=== PATIENT | male | born 1965 | race Caucasian/White ===

== ENCOUNTER 2017-03-26 00:34 | Emergency (ER) | payer MEDICAID ==
[~2017-03-26] VITALS: Ht 175.3 cm; Wt 127.0 kg
[~2017-03-26 00:34] MED LIST: NEXIUM40 MG PO; NORCO 5-325 TA1 EACH PO; PROPRANOLOL 1010 MG PO; SYMBICORT160 MCG/4. INH; VENTOLIN HFA 1818 GM INH; VIAGRA100 MG PO; WELLBUTRIN SR150 MG PO
[2017-03-26] MEDS ORDERED: ASPIR 8181 MG PO (00:41)
[2017-03-26] MEDS ORDERED: TRAMADOL 50 MG50 MG PO (00:41)
[2017-03-26] MEDS ORDERED: LISINOPRIL-HCT1 EAC2 PO (00:41)
[2017-03-26] MEDS ORDERED: MOBIC15 MG PO (00:41)
[2017-03-26 01:30] LABS: INFLUENZA A ANTIGEN None Detected (None Detect); INFLUENZA B ANTIGEN None Detected (None Detect)
[2017-03-26] MEDS ORDERED: TUSSIONEX PENN115 ML PO (01:36)
[2017-03-26 02:05] VITALS: BP 134/88
== END 2017-03-26 02:05 | disposition home or self-care (01) ==
LOC: M.ERS 00:34
PROVIDERS: Emergency Medicine
DX: J40 Bronchitis, not specified as acute or chronic (principal); I10 Essential (primary) hypertension; F17.210 Nicotine dependence, cigarettes, uncomplicated

== ENCOUNTER 2018-09-19 00:14 | Emergency (ER) | payer MEDICAID ==
[~2018-09-19] VITALS: Ht 175.3 cm; Wt 136.1 kg
[~2018-09-19 00:14] MED LIST changes: +ASPIR 8181 MG PO; +LISINOPRIL-HCT1 EAC2 PO; +MOBIC15 MG PO; +TRAMADOL 50 MG50 MG PO; +TUSSIONEX PENN115 ML PO
[2018-09-19] MEDS ORDERED: ADVAIR 100-501 EACH INH (00:29)
[2018-09-19] MEDS ORDERED: IBUPROFEN 800800 MG PO (01:20)
[2018-09-19] MEDS ORDERED: HYDROCODON-ACE1 EAC7 PO (01:20)
[2018-09-19 01:28] VITALS: BP 151/86
== END 2018-09-19 01:29 | disposition home or self-care (01) ==
LOC: M.ERS 00:14
DX: S83.8X1A Sprain of other specified parts of right knee, initial encounter (principal); M25.551 Pain in right hip; I10 Essential (primary) hypertension; F17.210 Nicotine dependence, cigarettes, uncomplicated; Z96.651 Presence of right artificial knee joint; Z86.19 Personal history of other infectious and parasitic diseases; X50.1XXA Overexertion from prolonged static or awkward postures, initial encounter; Y93.89 Activity, other specified; Y92.89 Other specified places as the place of occurrence of the external cause; Y99.8 Other external cause status